=== PATIENT | male | born 1985 | race Caucasian/White ===

== ENCOUNTER 2017-03-24 15:04 | Emergency (ER) | payer MEDICARE, OTHER ==
[2017-03-24] MEDS ORDERED: Lidocaine 2% w/Epinephrine 1:200K 20 ML VIAL FS SCH (15:30)
[2017-03-24] MEDS ORDERED: Bacitracin Zinc 1 Packet ONE (16:16)
== END 2017-03-24 16:27 | disposition home or self-care (01) ==
LOC: ERS 15:04
DX: S61.512A Laceration without foreign body of left wrist, initial encounter (principal); E78.5 Hyperlipidemia, unspecified; F41.9 Anxiety disorder, unspecified; F43.10 Post-traumatic stress disorder, unspecified; F17.220 Nicotine dependence, chewing tobacco, uncomplicated; W45.8XXA Other foreign body or object entering through skin, initial encounter
CPT/HCPCS: 12004

== ENCOUNTER 2019-12-26 19:07 | Emergency (ER) | payer OTHER ==
[2019-12-27 14:43] LABS: SARS-CoV-2 MS2 Positive; SARS-CoV-2 N Gene Negative; SARS-CoV-2 S Gene Negative; SARS-CoV-2 orf1ab Negative
== END 2019-12-26 20:34 | disposition home or self-care (01) ==
LOC: ERS 19:07
DX: R09.81 Nasal congestion (principal); R05 Cough; R19.7 Diarrhea, unspecified; R52 Pain, unspecified; Z20.828 Contact with and (suspected) exposure to other viral communicable diseases; E78.5 Hyperlipidemia, unspecified; E78.00 Pure hypercholesterolemia, unspecified; I34.1 Nonrheumatic mitral (valve) prolapse; F41.9 Anxiety disorder, unspecified; F43.10 Post-traumatic stress disorder, unspecified; G47.00 Insomnia, unspecified; F17.220 Nicotine dependence, chewing tobacco, uncomplicated; Z85.850 Personal history of malignant neoplasm of thyroid; Z91.82 Personal history of military deployment
CPT/HCPCS: 87635; 99283; U0003